=== PATIENT | female | born 1970 | race Caucasian/White ===

== ENCOUNTER 2023-01-08 19:12 | Emergency (ER) | payer OTHER, MEDICAID, SELFPAY ==
[2023-01-08 19:24] VITALS: BP 161/85; PULSE 64; RESP 16; TEMP 36.3; O2SAT 100; BMI 40.7
--- NOTE | 2023-01-08 20:15 | ED.EXTPRO ---
HPI - Extremity Problem General Chief complaint: Extremity Problem,Nontraumatic Stated complaint: states sonic nerve pain, tired Time Seen by Provider: 01/08/23 19:39 Source: patient Mode of arrival: Ambulatory History of Present Illness HPI Narrative: patient comes to the ED today reporting chronic back pain. No discrete injury. She is been struggling with this now for many months. She has an MRI scheduled for later in January along with orthopedic follow-up. She is had trouble with opioids in the past and is not currently taking opioids. Ibuprofen and Tylenol are not adequate. She has no incontinence. No fever, no loss of function in her lower extremities. She is able to walk ever Related Data Previous Rx's Medication Instructions Recorded amitriptyline 25 mg tablet 25 mg PO BEDTIME #30 tabs 01/08/23 Allergies Allergy/AdvReac Type Severity Reaction Status Date / Time aripiprazole Allergy Verified 01/08/23 20:19 bupropion Allergy Verified 01/08/23 20:19 gabapentin Allergy Verified 01/08/23 20:19 prochlorperazine Allergy Verified 01/08/23 20:19 Patient History Social History Smoking Status: Former smoker Smoking Status: Former smoker alcohol intake frequency: holidays/special occasions only Exam Narrative Exam Narrative: GENERAL: Alert, cooperative and in no distress. HEAD: Atraumatic. Normocephalic. EYES: Sclera are clear without icterus. Extraocular movements are full. ENT: No rhinorrhea. Oropharynx is moist. Mouth exam is benign. NECK: Supple. Full range of motion. GASTROINTESTINAL: Abdomen soft, non-tender, nondistended. EXTREMITIES: No edema, full range of motion. No obvious trauma.Straight leg test positive on the right (modified) BACK: Normal inspection, no CVA tenderness. NEURO: Nonfocal examination, normal speech, slow equal narrow based gait. normal dorsiflexion and plantar flexion strength of the ankles. SKIN: No rash or erythema of visible areas PSYCH: Normally oriented. Normal range of affect. Appropriate behavior Initial Vital Signs Initial Vital Signs: Vital Signs Temperature 97.4 F L 01/08/23 19:24 Pulse Rate 64 01/08/23 19:24 Respiratory Rate 16 01/08/23 19:24 Blood Pressure 161/85 H 01/08/23 19:24 Pulse Oximetry 100 01/08/23 19:24 Oxygen Delivery Method Room Air 01/08/23 19:24 Course Orders Ordered: Discontinued Medications Amitriptyline HCl (Amitriptyline 25 Mg Tablet) 25 mg PO NOW ONE Stop: 01/08/23 20:16 Hydromorphone HCl (Hydromorphone 1 Mg Inj) 1 mg IM NOW ONE Stop: 01/08/23 20:16 Reevaluation(s) Reevaluation #1: Patient has sciatica and chronic back pain. Requesting help with severe pain. Not requesting opioids per se. Can not take gabapentin. Has orthopedic follow-up scheduled. Vital Signs Vital signs: Vital Signs - 8 hr 01/08/23 19:24 Temperature 97.4 F L Pulse Rate 64 Respiratory Rate 16 Blood Pressure 161/85 H Pulse Oximetry 100 Oxygen Delivery Method Room Air Discharge Plan Departure Patient Disposition: Home Clinical Impression: Acute low back pain with sciatica Activity Restrictions/Additional Instructions: no immediately dangerous cause for your back pain is identified or suspected at this moment. For management I recommend Tylenol 1000 mg taken together with [id number] mg every 6 hours. Try amitriptyline 25 mg at bedtime for the next week to see if this will help ameliorate your pain. I recommend follow-up with Lucinda harkins in a week to discuss other pain management alternatives including such things as Lyrica. You should follow-up in the ER right away for incontinence, lower extremity weakness or fever associated with back pain. Otherwise follow up as planned later in January. Prescriptions: New amitriptyline 25 mg tablet 25 mg PO BEDTIME Qty: 30 0RF Referrals: Lucinda Harkins ARNP [Primary Care Provider] - Stand Alone Forms: Patient Portal/API
[2023-01-08] MEDS: AMITRIPTYLINE 25 MG TABLET PO (20:29)
[2023-01-08] MEDS: HYDROMORPHONE 1 MG INJ IM (20:30)
[2023-01-08 20:39] VITALS: BP 109/76; PULSE 70; RESP 18; O2SAT 98
== END 2023-01-08 20:47 | disposition home or self-care (01) ==
PROVIDERS: Emergency Provider Family Medicine Addiction Medicine; PCP Nurse Practitioner
DX: M54.40 Lumbago with sciatica, unspecified side (principal)
CPT/HCPCS: 96372; 99283; J1170

== ENCOUNTER 2023-02-03 22:38 | Emergency (ER) | payer OTHER, MEDICAID, SELFPAY ==
[2023-02-03 22:44] VITALS: BP 170/87; PULSE 79; RESP 16; TEMP 36.8; O2SAT 96; BMI 41.5
--- NOTE | 2023-02-03 23:15 | PC.NURSE ---
pt recently had MRI and has neuropathy but is having increased pain just want to makes sure nothing else is wrong
--- NOTE | 2023-02-03 23:20 | ED_ITS ---
HPI - Extremity Problem General Chief complaint: Extremity Problem,Nontraumatic Stated complaint: low back/right leg pain Time Seen by Provider: 02/03/23 23:00 Source: patient Mode of arrival: Wheelchair History of Present Illness HPI Narrative: Patient is a 52-year-old female. Has a longstanding history of right-sided sciatic pain. She was also a diabetic. Has underlying neuropathy. Has seen her primary doctor for back pain. Has seen Physical therapy. There has been discussion about referral to see spine surgeons. She had an MRI performed at an outside facility approximately 10 days ago. She has followed up with her primary doctor regarding this. She does not remember the specific diagnoses. She is on multiple medications at home for her back pain. She is here tonight not necessarily for new symptoms but she states that she is had continued symptoms. She feels like that she is swelling in her right buttocks. No fevers. No change in urinary symptoms or bowel habits. Related Data Previous Rx's Medication Instructions Recorded amitriptyline 25 mg tablet 25 mg PO BEDTIME #30 tabs 01/08/23 prednisone 20 mg tablet 20 mg PO DAILY 6 days #6 tabs 02/03/23 Allergies Allergy/AdvReac Type Severity Reaction Status Date / Time aripiprazole Allergy Verified 01/08/23 20:19 bupropion Allergy Verified 01/08/23 20:19 gabapentin Allergy Verified 01/08/23 20:19 prochlorperazine Allergy Verified 01/08/23 20:19 Review of Systems Constitutional Constitutional: Reports system reviewed and no additional complaints, except as documented Cardiovascular Cardiovascular: Reports system reviewed and no additional complaints, except as documented Respiratory Respiratory: Reports system reviewed and no additional complaints, except as documented Gastrointestinal Gastrointestinal: Reports system reviewed and no additional complaints, except as documented Musculoskeletal Musculoskeletal: Reports system reviewed and no additional complaints, except as documented Integumentary/Breasts Skin/Breast: Reports system reviewed and no additional complaints, except as documented Patient History Social History Smoking Status: Former smoker Smoking Status: Former smoker alcohol intake frequency: holidays/special occasions only Substance Use Type: does not use Exam Initial Vital Signs Initial Vital Signs: Vital Signs Temperature 98.2 F 02/03/23 22:44 Pulse Rate 79 02/03/23 22:44 Respiratory Rate 16 02/03/23 22:44 Blood Pressure 170/87 H 02/03/23 22:44 Pulse Oximetry 96 02/03/23 22:44 Oxygen Delivery Method Room Air 02/03/23 22:44 HENMT Head: normal to inspection and normocephalic Resp Effort & Inspection: normal respiratory effort Cardio Rate: regular rate GI Other: No swelling noted over the right buttock. Extrem General: No edema Course Vital Signs Vital signs: Vital Signs - 8 hr 02/03/23 22:44 Temperature 98.2 F Pulse Rate 79 Respiratory Rate 16 Blood Pressure 170/87 H Pulse Oximetry 96 Oxygen Delivery Method Room Air MDM - Extremity (Nontraumatic) MDM Narrative Medical decision making narrative: Longstanding history of right-sided sciatic pain. No new symptoms today. Low suspicion for an acute surgical issue. Would not be surprised if she does require follow-up with Orthopedic spine. She does need to continue to take all of her medications. We will start her on a short course of steroids. She is diabetic and she was informed that she was going to need to watch her blood sugars at home. No indication to change any of her current medications. Discharge Plan Departure Patient Disposition: Home Clinical Impression: Chronic low back pain with sciatica Instructions: DI for Low Back Pain Activity Restrictions/Additional Instructions: Recommend that you continue to take all of your medications as directed. The steroids we are going to put you on today could potentially cause your blood s ugars to become higher. You do need to be aware this and dose your insulin appropriately. Contact your primary care doctor for a follow-up. Prescriptions: New prednisone 20 mg tablet 20 mg PO DAILY 6 Days Qty: 6 0RF No Action amitriptyline 25 mg tablet 25 mg PO BEDTIME Qty: 30 0RF Referrals: Lucinda Camp ARNP [Primary Care Provider] - Stand Alone Forms: Patient Portal/API
[2023-02-03] MEDS: predniSONE 20 MG TABLET PO (23:25)
== END 2023-02-03 23:34 | disposition home or self-care (01) ==
PROVIDERS: Emergency Provider Emergency Medicine; PCP Nurse Practitioner
DX: M54.41 Lumbago with sciatica, right side (principal)
CPT/HCPCS: 99283